=== PATIENT | male | born 1955 | race Two or more races ===

== ENCOUNTER 2024-10-04 14:21 | Inpatient (IN) | payer OTHER ==
[~2024-10-04] VITALS: Ht 170.2 cm; Wt 81.6 kg
[~2024-10-04 14:21] MED LIST: ANTIVERT25 M1 PO; LASIX20 MG; LEVSIN/SL0.125 MG PO; PEPCID40 MG PO
[2024-10-04] MEDS ORDERED: 0.9 % SODIUM CHLORIDE 1,000 ML IV ONE (16:30)
[2024-10-04 18:09] LABS: HEMATOCRIT 33.4 % (39.0-48.0); HEMOGLOBIN 11.5 g/dL (13-16.00); MEAN CELL VOLUME 93.2 fL (80.0-100.00); MEAN CORPUSCULAR HGB CONC 34.4 g/dl (32.0-36.0); PLATELET COUNT 354 K/uL (150-450); RED BLOOD COUNT 3.58 M/uL (4.00-6.00); RED CELL DISTRIBUTION WIDTH 12.9 % (11.5-14.5)
[2024-10-04 19:11] LABS: ALBUMIN 4.9 gm/dL (3.4-5.0); BILIRUBIN TOTAL 0.63 mg/dL (0.3-1.2); CALCIUM 9.5 mg/dL (8.5-10.1); POTASSIUM 4.66 mEq/L (3.5-5.1); TOTAL PROTEIN 7.9 gm/dL (6.4-8.2)
[2024-10-04 19:26] LABS: CREATININE SERUM 5.21 mg/dL (0.70-1.30)
[2024-10-04] MEDS ORDERED: hydrALAZINE HCL 20 MG VIAL IV PRN (23:15)
[2024-10-04] MEDS ORDERED: ONDANSETRON HCL 4 MG in 0.9 % SODIUM CHLORIDE 50 ML IV PRN (23:15)
[2024-10-04] MEDS ORDERED: ACETAMINOPHEN 325 MG TABLET PO PRN (23:15)
[2024-10-04] MEDS ORDERED: 0.9 % SODIUM CHLORIDE 1,000 ML IV SCH (23:15)
[2024-10-05 01:10] LABS: INR 1.1; PARTIAL THROMBOPLASTIN TIME 30.1 SECONDS (22.0-34.0); PROTHROMBIN TIME 11.9 SECONDS (9.0-11.5)
[2024-10-05 01:48] LABS: PH,URINE 7.5 (5.0-8.0); URINE APPEARANCE Clear; URINE BILIRRUBIN Negative (NEGATIVE); URINE BLOOD Negative; URINE COLOR Yellow; URINE GLUCOSE Negative (NEGATIVE); URINE KETONE Negative (NEGATIVE); URINE LEUKOCYTE Negative; URINE NITRATE Negative; URINE PROTEIN Negative (NEGATIVE); URINE UROBILINOGEN 0.2 E.U./dl
[2024-10-05 02:08] LABS: URINE BACTERIA 0 uL (0.0-1933); URINE EPITHELIAL CELLS 0.1 uL (0.0-38.8); URINE RBC 0.1 uL (0.0-20.8); URINE WBC 0 uL (0.0-23.2)
[2024-10-05] MEDS ORDERED: PANTOPRAZOLE SODIUM 40 MG/VIAL VIAL IV SCH (09:00)
[2024-10-05 10:10] VITALS: BP 90/52; O2SAT 99
[2024-10-05 16:44] LABS: ALBUMIN 4.3 gm/dL (3.4-5.0); CALCIUM 9.3 mg/dL (8.5-10.1); GFR 14.42; PHOSPHOROUS 3.9 mg/dL (2.5-4.9); POTASSIUM 4.36 mEq/L (3.5-5.1)
[2024-10-05 16:50] LABS: CREATININE SERUM 4.12 mg/dL (0.70-1.30)
[2024-10-05 17:28] VITALS: BP 104/65; O2SAT 98
[2024-10-06 01:19] VITALS: BP 104/60
[2024-10-06 07:45] LABS: ALBUMIN 4.1 gm/dL (3.4-5.0); BILIRUBIN TOTAL 0.69 mg/dL (0.3-1.2); CALCIUM 9.4 mg/dL (8.5-10.1); CREATININE SERUM 3.52 mg/dL (0.70-1.30); GFR 17.29; GLOBULINA 2.8 G/DL (2.4-3.5); POTASSIUM 4.49 mEq/L (3.5-5.1); TOTAL PROTEIN 6.9 gm/dL (6.4-8.2)
[2024-10-06 09:00] VITALS: BP 104/61; O2SAT 98
[2024-10-06 16:40] VITALS: BP 94/56; O2SAT 100
[2024-10-06] MEDS ORDERED: TAMSULOSIN HCL 0.4 MG CAP PO SCH (21:00)
[2024-10-06 23:00] VITALS: BP 86/50; O2SAT 100
[2024-10-07 00:47] VITALS: BP 88/52
[2024-10-07 02:00] VITALS: BP 100/60
[2024-10-07 08:55] VITALS: BP 92/56; O2SAT 100
[2024-10-07 17:21] VITALS: BP 116/65; O2SAT 100
[2024-10-08 01:06] VITALS: BP 97/58; O2SAT 99
[2024-10-08 06:32] LABS: HEMATOCRIT 25.1 % (39.0-48.0); MEAN CELL VOLUME 91.9 fL (80.0-100.00); MEAN CORPUSCULAR HGB CONC 35.3 g/dl (32.0-36.0); PLATELET COUNT 232 K/uL (150-450); RED BLOOD COUNT 2.73 M/uL (4.00-6.00); RED CELL DISTRIBUTION WIDTH 13.2 % (11.5-14.5)
[2024-10-08 06:52] LABS: MEAN CORPUSCULAR HEMOGLOBIN 32.6 pg (27.00-32.0)
[2024-10-08 06:53] LABS: HEMOGLOBIN 8.9 g/dL (13-16.00)
[2024-10-08 07:14] LABS: ALBUMIN 3.4 gm/dL (3.4-5.0); CALCIUM 8.8 mg/dL (8.5-10.1); CREATININE SERUM 2.41 mg/dL (0.70-1.30); GFR 26.77; PHOSPHOROUS 2.9 mg/dL (2.5-4.9); POTASSIUM 4.23 mEq/L (3.5-5.1); PROSTATIC SPECIFIC ANTIGEN 0.71 NG/ML (0.010-4.00)
[2024-10-08 08:50] VITALS: BP 106/58; O2SAT 98
[2024-10-08] MEDS ORDERED: SODIUM CHLORIDE 0.45 % 1,000 ML IV SCH (09:00)
[2024-10-08] MEDS ORDERED: FINASTERIDE 5 MG TABLET PO SCH (09:00)
[2024-10-08 16:56] VITALS: BP 115/67; O2SAT 98
[2024-10-09 01:26] VITALS: BP 126/66; O2SAT 98
[2024-10-09 07:37] LABS: ALBUMIN 3.5 gm/dL (3.4-5.0); CALCIUM 9.3 mg/dL (8.5-10.1); CREATININE SERUM 2.09 mg/dL (0.70-1.30); GFR 31.55; POTASSIUM 3.93 mEq/L (3.5-5.1)
[2024-10-09 09:19] VITALS: BP 102/61; O2SAT 99
== END 2024-10-09 10:39 | disposition home or self-care (01) | DRG 684 ==
LOC: ER 14:24 → MEDJ 23:10 → MEDI 23:10 → SURH 10-05 02:10 → MEDI 10-05 02:34
PROVIDERS: General Practice; Internal Medicine; Internal Medicine Nephrology; Preventive Medicine Public Health & General Preventive Medicine; ADMIT Internal Medicine; ATTEND Internal Medicine
PROC: BT43ZZZ Ultrasonography of Bilateral Kidneys (ICD-10-PCS; principal; 2024-10-04)
PROC: B020ZZZ Computerized Tomography (CT Scan) of Brain (ICD-10-PCS; 2024-10-08)
DX: N17.9 Acute kidney failure, unspecified (principal); I95.9 Hypotension, unspecified; R41.82 Altered mental status, unspecified; I12.9 Hypertensive chronic kidney disease with stage 1 through stage 4 chronic kidney disease, or unspecified chronic kidney disease; N18.9 Chronic kidney disease, unspecified